=== PATIENT | male | born 1975 | race Hispanic/Latino ===

== ENCOUNTER 2017-06-18 08:14 | Emergency (ER) | payer OTHER ==
[2017-06-18] MEDS ORDERED: Ketorolac Tromethamine 30 MG/ML VIAL ONE (08:56)
[2017-06-18] MEDS ORDERED: Ondansetron HCl/PF 4 MG/2 ML Vial ONE (08:56)
[2017-06-18 09:25] LABS: #Basophils 0.1 thou/uL (0.0-0.2); #Lymphocytes 1.5 thou/uL (1.20-3.40); #Monocytes 0.4 thou/uL (0.11-0.59); #Neutrophils 8.8 thou/uL (1.40-6.50); %Basophils 0.9 % (0.0-1.0); %Eosinophils 0.3 % (0.0-10.0); %Lymphocytes 14.1 % (21.0-51.0); %Monocytes 3.3 % (0.0-10.0); Mean Platelet Volume 6.8 fL (7.4-10.4); Red Blood Cell (RBC) Count 4.86 mill/uL (4.70-6.10); White Blood Cell (WBC) Count 10.8 thou/uL (4.8-10.8)
[2017-06-18 09:32] LABS: ALT (SGPT) 20 U/L (8-55); AST (SGOT) 13 U/L (5-34); Alkaline Phosphatase 100 U/L (40-150); Anion Gap 16 mmol/L (10-20); BUN (Urea Nitrogen) 20 mg/dL (8.9-20.6); Bilirubin, Total 0.6 mg/dL (0.2-1.2); Calc. Creatinine Clearance 0 mL/min (70-130); Calcium 9.3 mg/dL (7.8-10.44); Carbon Dioxide 23 mmol/L (22-29); Chloride 105 mmol/L (98-107); Estimated GFR-MDRD 64; Globulin 2.9 g/dL (2.4-3.5); Lipase 10 U/L (8-78); Protein, Total 7.5 g/dL (6.0-8.3)
--- NOTE | 2017-06-18 09:51 | CT ---
CT ABDOMEN AND PELVIS WITHOUT IV CONTRAST: Date: 06/18/17 HISTORY: Left renal colic. COMPARISON: 10/01/05. FINDINGS: There is minimal left hydronephrosis with an approximately 4.0 mm calculus in the proximal left uret er. No additional renal or ureteral calculi are seen bilaterally. The previously seen right renal ca lculus, as well as urinary bladder calculus on the study in 2005 are no longer visualized. The lung bases, liver, spleen, pancreas, bilateral adrenal glands, right kidney, and incompletely di stended urinary bladder demonstrate a grossly normal nonenhanced CT appearance. The appendix is visualized and normal in caliber. No other interval change from prior exam. IMPRESSION: Partially obstructing, approximately 4.0 mm, left proximal ureteral calculus. Above findings discussed with Dr. Laureano in the emergency department on 06/18/17 at 0932 hours. CODE CR. POS: [id number]
[2017-06-18 10:54] LABS: Bilirubin Negative (Negative); Blood, Urine Moderate (Negative); Glucose, Urine (Dipstick) Negative (Negative); Ketone, Urine Negative (Negative); Nitrite Negative (Negative); Protein, Urine (Dipstick) Negative (Neg-Trace); Urobilinogen 0.2 mg/dL (0.2-1.0)
[2017-06-18 11:01] LABS: RBC/HPF GREATER THAN 50-TNTC HPF (0-3)
[2017-06-18 11:02] LABS: Bacteria/HPF None Seen HPF (None Seen); Hyaline Casts/LPF NONE SEEN LPF (0-3 Hyaline); Squamous Epithelial 0-3 HPF (0-3); WBC/HPF 0-3 HPF (0-3)
== END 2017-06-18 12:05 | disposition home or self-care (01) ==
LOC: ERS 08:14
DX: N23 Unspecified renal colic (principal)
CPT/HCPCS: 74176; 80053; 81003; 81015; 83690; 85025; 96361; 96374; 96375; J1885; J2405